=== PATIENT | male | born 1945 | race Caucasian/White ===

== ENCOUNTER 2018-03-19 01:47 | Emergency (ER) | payer MEDICARE, BC ==
[~2018-03-19] VITALS: Ht 190.5 cm; Wt 104.5 kg
[~2018-03-19 01:47] MED LIST: ACTOS 15MG TAB15 MG PO; COUMADIN 3MG3 MG/TAB PO; COUMADIN 5MG5 MG/TAB PO; LIPITOR 40MG TA40 MG PO; LIPITOR20 MG PO; LOFIBRA160 MG PO; LOTREL 10 MG-201 CAP PO; LOTREL 5 MG-401 CAP PO; MOBIC15 MG PO; TYLENOL 325MG325 MG PO; ZETIA10 MG PO
[2018-03-19] MEDS ORDERED: OMNICEF 300MG300 MG PO (01:56)
[2018-03-19] MEDS ORDERED: PYRIDIUM 100MG100 MG PO (01:56)
[2018-03-19] MEDS ORDERED: DOXYCYCLINE 10100 MG PO (01:56)
[2018-03-19 02:18] LABS: HEMATOCRIT 37.5 % (42.0-52.0); HEMOGLOBIN 12.9 g/dl (13.5-18.0); MEAN CELL VOLUME 89 fl (80.0-100.0); MEAN CORPUSCULAR HEMOGLOBIN 31 pg (27.0-31.0); MEAN CORPUSCULAR HGB CONC 34 g/dl (33.0-37.0); MEAN PLATELET VOLUME 10.2 fl (7.4-10.4); PLATELET COUNT 263 K/mm3 (130-400); RED BLOOD COUNT 4.23 M/mm3 (4.20-5.60); REDCELL DISTRIBUTION WIDTH-CV 15.6 % (11.5-14.5)
[2018-03-19 02:21] LABS: COLLECTION METHOD CLEAN CATCH
[2018-03-19 02:24] LABS: INR 2.7 (0.8-3.0); PROTHROMBIN TIME 31.2 SECONDS (9.7-12.8)
[2018-03-19 02:26] LABS: ALBUMIN 3.2 gm/dL (3.5-5.0); BILIRUBIN,TOTAL 1.6 mg/dL (0.0-1.0); CALCIUM 8.8 mg/dL (8.4-10.2); CREATININE, serum 1.19 mg/dL (0.66-1.25); POTASSIUM 3.4 mmol/L (3.4-5.0); TOTAL PROTEIN 6.6 gm/dL (6.4-8.2)
[2018-03-19 02:27] LABS: MUCOUS Present /lpf; PH 5 (5-8); SQUAMOUS EPITHELIAL 0-2 /hpf; URINE APPEARANCE Clear; URINE BACTERIA Rare /hpf; URINE BILIRUBIN Negative (NEGATIVE); URINE BLOOD 1+ (NEGATIVE); URINE COLOR Amber; URINE GLUCOSE Negative (NEGATIVE); URINE KETONE Negative (NEGATIVE); URINE LEUKOCYTE ESTERASE 1+ (NEGATIVE); URINE NITRATE Negative (NEGATIVE); URINE PROTEIN(semi-quant) 1+ (NEGATIVE)
[2018-03-19] MEDS ORDERED: LIPITOR 80MG80 MG PO (02:30)
[2018-03-19] MEDS ORDERED: PRINIVIL40 MG PO (02:31)
[2018-03-19] MEDS ORDERED: COREG 6.256.25 MG/TA PO (02:34)
[2018-03-19] MEDS ORDERED: FLOMAX 0.40.4 MG/CAP PO (02:34)
[2018-03-19 02:44] LABS: TROPONIN-I 0.085 ng/mL (0.000-0.034)
[2018-03-19 02:55] LABS: BAND 32 % (0-10); EOSINOPHIL 2 % (0-4); LYMPHOCYTE 8 % (20.0-51.0); NEUTROPHILS 56 % (42.0-75.2); PLATELET ESTIMATE NORMAL (NORMAL)
[2018-03-19 04:43] VITALS: TEMP 98.9
[2018-03-19 10:02] VITALS: BP 106/70; PULSE 76
[2018-03-21] MEDS ORDERED: ASPIRIN E.C. 8181 MG PO (13:51)
[2018-03-21] MEDS ORDERED: MULTI VITAMINS1 TAB PO (13:53)
[2018-03-21] MEDS ORDERED: K-DUR 10 MEQ T10 MEQ PO (13:54)
== END 2018-03-19 10:33 | disposition short-term general hospital (02) ==
LOC: COL.ER 01:47
PROVIDERS: Emergency Medicine
DX: A41.9 Sepsis, unspecified organism (principal); N39.0 Urinary tract infection, site not specified; R79.89 Other specified abnormal findings of blood chemistry; Z79.01 Long term (current) use of anticoagulants
CPT/HCPCS: J0696; J2405; J2543; J7030; J7050

== ENCOUNTER 2018-06-17 07:31 | Day surgery (SDC) | payer MEDICARE, BC ==
[2018-06-17] VITALS (441 sets, daily range): BP systolic 141–176; BP diastolic 81–131; PULSE 50–83; TEMP 97.9–98.3; O2SAT 84–100
[~2018-06-17] VITALS: Ht 190.7 cm; Wt 102.5 kg
[~2018-06-17 07:31] MED LIST changes: +ASPIRIN E.C. 8181 MG PO; +COREG 6.256.25 MG/TA PO; +DOXYCYCLINE 10100 MG PO; +FLOMAX 0.40.4 MG/CAP PO; +K-DUR 10 MEQ T10 MEQ PO; +LIPITOR 80MG80 MG PO; +MULTI VITAMINS1 TAB PO; +OMNICEF 300MG300 MG PO; +PRINIVIL40 MG PO; +PYRIDIUM 100MG100 MG PO
[2018-06-17 08:01] LABS: HEMATOCRIT 42.8 % (42.0-52.0); HEMOGLOBIN 13.7 g/dl (13.5-18.0); MEAN CELL VOLUME 93 fl (80.0-100.0); MEAN CORPUSCULAR HEMOGLOBIN 30 pg (27.0-31.0); MEAN CORPUSCULAR HGB CONC 32 g/dl (33.0-37.0); MEAN PLATELET VOLUME 10.7 fl (7.4-10.4); PLATELET COUNT 293 K/mm3 (130-400); REDCELL DISTRIBUTION WIDTH-CV 15.7 % (11.5-14.5)
[2018-06-17 08:06] LABS: INR 1.6 (0.8-3.0); PROTHROMBIN TIME 17.7 SECONDS (9.7-12.8)
[2018-06-17 08:13] LABS: CALCIUM 8.8 mg/dL (8.4-10.2); CREATININE, serum 0.96 mg/dL (0.66-1.25); POTASSIUM 3.7 mmol/L (3.4-5.0)
[2018-06-17] MEDS ORDERED: PROSCAR 5MG5 MG PO (09:39)
[2018-06-17] MEDS ORDERED: PRINIVIL2.5 MG PO (09:40)
[2018-06-17] MEDS ORDERED: MIRALAX PA17 GM/Dose PO (09:42)
[2018-06-18] VITALS: BP 142/88; PULSE 60; TEMP 98
[2018-06-18 03:29] VITALS: BP 139/92; BP 139/93; PULSE 51; PULSE 56; TEMP 98.1
[2018-06-18 03:40] LABS: BASO # 0.1 (0.0-0.2); BASO % 0.9 % (0.0-2.0); EOS # 0.2 (0.0-0.7); EOS % 3.6 % (0-4.0); GRAN % 68.2 % (42.2-75.2); HEMATOCRIT 39.2 % (42.0-52.0); HEMOGLOBIN 12.9 g/dl (13.5-18.0); LYMPH % 16.7 % (20.0-51.0); MEAN CELL VOLUME 91 fl (80.0-100.0); MEAN CORPUSCULAR HEMOGLOBIN 30 pg (27.0-31.0); MEAN CORPUSCULAR HGB CONC 33 g/dl (33.0-37.0); MEAN PLATELET VOLUME 10.7 fl (7.4-10.4); MONO # 0.6 (0.1-0.6); MONO % 10.4 % (1.7-9.3); PLATELET COUNT 288 K/mm3 (130-400); REDCELL DISTRIBUTION WIDTH-CV 15.2 % (11.5-14.5)
[2018-06-18 03:45] LABS: INR 1.5 (0.8-3.0); PROTHROMBIN TIME 16.7 SECONDS (9.7-12.8)
[2018-06-18 03:50] LABS: CREATININE, serum 0.86 mg/dL (0.66-1.25); POTASSIUM 3.3 mmol/L (3.4-5.0)
[2018-06-18 08:18] VITALS: BP 148/107; PULSE 59; TEMP 98.7
[2018-06-18] MEDS ORDERED: BRILINTA90 MG PO (09:11)
== END 2018-06-18 09:45 | disposition home or self-care (01) ==
LOC: COL.CAR 07:31 → ICU 11:15 → COL.CAR 06-18 09:45
PROVIDERS: Internal Medicine Cardiovascular Disease; Nurse Practitioner
DX: I25.10 Atherosclerotic heart disease of native coronary artery without angina pectoris (principal); R94.39 Abnormal result of other cardiovascular function study; I48.2 Chronic atrial fibrillation; E78.5 Hyperlipidemia, unspecified; I12.9 Hypertensive chronic kidney disease with stage 1 through stage 4 chronic kidney disease, or unspecified chronic kidney disease; E11.22 Type 2 diabetes mellitus with diabetic chronic kidney disease; N18.3 Chronic kidney disease, stage 3 (moderate); E11.65 Type 2 diabetes mellitus with hyperglycemia; N40.1 Benign prostatic hyperplasia with lower urinary tract symptoms; R35.1 Nocturia; M19.90 Unspecified osteoarthritis, unspecified site; Z88.2 Allergy status to sulfonamides; F17.290 Nicotine dependence, other tobacco product, uncomplicated; I34.9 Nonrheumatic mitral valve disorder, unspecified; Z95.5 Presence of coronary angioplasty implant and graft; Z79.82 Long term (current) use of aspirin; Z79.01 Long term (current) use of anticoagulants; Z83.3 Family history of diabetes mellitus; Z82.49 Family history of ischemic heart disease and other diseases of the circulatory system
CPT/HCPCS: OP; C1760; C1769; C1887; C1894; J0583; J1644; J2250; J3010; Q9967

== ENCOUNTER 2020-10-15 12:33 | Observation (INO) | payer MEDICARE, BC ==
[~2020-10-15] VITALS: Ht 190.5 cm; Wt 96.7 kg
[~2020-10-15 12:33] MED LIST changes: +BRILINTA90 MG PO; +MIRALAX PA17 GM/Dose PO; +PRINIVIL2.5 MG PO; +PROSCAR 5MG5 MG PO
[2020-10-15] MEDS ORDERED: COUMADIN 2MG2 MG/TAB PO (12:56)
[2020-10-15 13:15] LABS: BASO % 0.4 % (0.0-2.0); GRAN # 2.1 (1.4-6.5); GRAN % 72.2 % (42.2-75.2); HEMATOCRIT 43.1 % (42.0-52.0); HEMOGLOBIN 14.5 g/dl (13.5-18.0); LYMPH # 0.5 (1.2-3.4); LYMPH % 18.9 % (20.0-51.0); MEAN CELL VOLUME 90 fl (80.0-100.0); MEAN CORPUSCULAR HEMOGLOBIN 30 pg (27.0-31.0); MEAN CORPUSCULAR HGB CONC 34 g/dl (33.0-37.0); MEAN PLATELET VOLUME 10.2 fl (7.4-10.4); MONO # 0.2 (0.1-0.6); MONO % 8.1 % (1.7-9.3); PLATELET COUNT 158 K/mm3 (130-400); RED BLOOD COUNT 4.77 M/mm3 (4.20-5.60); REDCELL DISTRIBUTION WIDTH-CV 14.6 % (11.5-14.5)
[2020-10-15 13:24] LABS: ALBUMIN 3.4 gm/dL (3.5-5.0); BILIRUBIN,TOTAL 1.1 mg/dL (0.0-1.0); CREATININE, serum 0.83 (0.66-1.25); POTASSIUM 3.7 mmol/L (3.4-5.0); TOTAL PROTEIN 6.5 gm/dL (6.4-8.2)
[2020-10-15 15:25] LABS: CALCIUM 7.6 mg/dL (8.4-10.2); CREATININE, serum 0.76 (0.66-1.25); POTASSIUM 3.4 mmol/L (3.4-5.0)
[2020-10-15 18:20] LABS: INR 1.9 (0.8-3.0); PROTHROMBIN TIME 21.9 SECONDS (9.7-12.8)
[2020-10-15 18:32] LABS: MAGNESIUM 1.9 mg/dL (1.6-2.3)
--- NOTE | 2020-10-15 19:30 | NUR ---
Pt arrived to medical unit room 305 around 1900. Oriented to room. Admission assessment completed. Lungs CTA, heart RRR, A&Ox4. Gait steady. Denies pain. NS started at 75 ml/hr per orders. Denies other concerns at this time. Call light in reach.
[2020-10-15 19:44] VITALS: BP 147/91; PULSE 59; TEMP 99.2
[2020-10-15] MEDS ORDERED: FLOMAX 0.40.4 MG/CAP PO (20:13)
[2020-10-15 20:40] LABS: TROPONIN-I 0.039 ng/mL (0.000-0.035)
[2020-10-15 20:55] LABS: TSH w REFLEX 2.5 uIU/mL (0.465-4.680)
[2020-10-15 23:11] VITALS: BP 129/68; PULSE 73; TEMP 99.5
[2020-10-16 00:01] LABS: COLLECTION METHOD CLEAN CATCH
[2020-10-16 00:08] LABS: MUCOUS Present /lpf; PH 6 (5-8); SQUAMOUS EPITHELIAL 0-2 /hpf; URINE APPEARANCE Clear; URINE BACTERIA None Seen /hpf; URINE BILIRUBIN Negative (NEGATIVE); URINE BLOOD Negative (NEGATIVE); URINE COLOR Yellow; URINE GLUCOSE Negative (NEGATIVE); URINE KETONE Negative (NEGATIVE); URINE LEUKOCYTE ESTERASE Negative (NEGATIVE); URINE NITRATE Negative (NEGATIVE); URINE PROTEIN(semi-quant) Negative (NEGATIVE); URINE RBC 0-2 /hpf; URINE UROBILINOGEN Negative (NEGATIVE)
[2020-10-16 00:14] LABS: TRICYCLIC ANTIDEPRESS URINE NEGATIVE
--- NOTE | 2020-10-16 01:15 | NUR ---
Potassium administered per protocol. Pt took 40 mEq but refused final dose.
[2020-10-16 02:18] VITALS: BP 134/68; PULSE 67; TEMP 98.5
[2020-10-16 04:26] VITALS: BP 134/54; PULSE 75; TEMP 100.1
--- NOTE | 2020-10-16 05:54 | NUR ---
Rested in bed most of night w/o complaint. IV fluids infusing. T-max of 100.1. Mild headache, declined tylenol and reports headache resolved on its own.
[2020-10-16 06:14] VITALS: BP 110/68; PULSE 56; TEMP 98.4
[2020-10-16 06:56] LABS: BASO % 0.4 % (0.0-2.0); EOS % 0.4 % (0-4.0); GRAN # 1.6 (1.4-6.5); GRAN % 60.3 % (42.2-75.2); HEMATOCRIT 41.1 % (42.0-52.0); HEMOGLOBIN 13.7 g/dl (13.5-18.0); LYMPH # 0.7 (1.2-3.4); LYMPH % 26.5 % (20.0-51.0); MEAN CELL VOLUME 91 fl (80.0-100.0); MEAN CORPUSCULAR HEMOGLOBIN 30 pg (27.0-31.0); MEAN CORPUSCULAR HGB CONC 33 g/dl (33.0-37.0); MEAN PLATELET VOLUME 10.6 fl (7.4-10.4); MONO # 0.3 (0.1-0.6); MONO % 11.2 % (1.7-9.3); PLATELET COUNT 161 K/mm3 (130-400); RED BLOOD COUNT 4.54 M/mm3 (4.20-5.60); REDCELL DISTRIBUTION WIDTH-CV 14.7 % (11.5-14.5)
[2020-10-16 08:06] VITALS: BP 122/62; PULSE 78; TEMP 98.3
--- NOTE | 2020-10-16 08:30 | NUR ---
Pt assessment complete pt sitting up in bed upon entry, he is A/O x4. Reports he did not get good sleep as he was woke up "every 30 min". Body aches come and go. Denies any SOB, currently on RA. No diarrhea at this time. IVF infusing without complications. Call light within reach.
[2020-10-16 09:55] VITALS: BP 98/56; PULSE 80; TEMP 98.3
[2020-10-16 12:02] VITALS: BP 99/55; PULSE 64; TEMP 98.6
[2020-10-16] MEDS ORDERED: COREG 3.123.125 MG/T PO (14:42)
[2020-10-16] MEDS ORDERED: RT Albuterol HFA MDI IH (14:42)
[2020-10-16] MEDS ORDERED: TYLENOL 325MG325 MG PO (14:43)
--- NOTE | 2020-10-16 14:53 | NUR ---
Plans to return home in [place], Patient reports that he recently placed with [facility]. Patient reports that test positive and then he. Patient reports that he was in the middle of planning whether he would go to the [facility] also, stay in home or move in with adult children. Patient reports not having it figured out. Patient reports PCP Dr. Patton and the use of Matt Sebastian. POA is [facility] at or . Dtr to transport.Patient denies having any need for DME or HHS. Will continue to follow for care support.
--- NOTE | 2020-10-16 15:24 | NUR ---
Discharge paperwork and instructions reviewed with patient. All questions answered at this time. IV to RFA dc'd catheter tip intact. Pt awaiting ride at this time.
--- NOTE | 2020-10-16 15:45 | NUR ---
Pt wheeled out of facility at this time.
== END 2020-10-16 15:45 | disposition home or self-care (01) ==
LOC: COL.ER 12:33 → MEDICAL 17:36
PROVIDERS: Emergency Medicine; Nurse Practitioner Family; ADMIT Internal Medicine
DX: R55 Syncope and collapse (principal); I10 Essential (primary) hypertension; I25.10 Atherosclerotic heart disease of native coronary artery without angina pectoris; I48.91 Unspecified atrial fibrillation; U07.1 COVID-19; F17.290 Nicotine dependence, other tobacco product, uncomplicated; Z87.440 Personal history of urinary (tract) infections; Z88.0 Allergy status to penicillin; Z96.651 Presence of right artificial knee joint; E87.6 Hypokalemia; E87.1 Hypo-osmolality and hyponatremia; E78.5 Hyperlipidemia, unspecified; I95.9 Hypotension, unspecified
CPT/HCPCS: G0378; J7030; J7040

== ENCOUNTER 2020-10-22 12:10 | Inpatient (IN) | payer MEDICARE, BC ==
[~2020-10-22] VITALS: Ht 190.5 cm; Wt 98.4 kg
[~2020-10-22 12:10] MED LIST changes: +COREG 3.123.125 MG/T PO; +COUMADIN 2MG2 MG/TAB PO; +RT Albuterol HFA MDI IH
[2020-10-22 13:24] LABS: BASO % 0.2 % (0.0-2.0); EOS % 0.5 % (0-4.0); GRAN % 82.7 % (42.2-75.2); HEMATOCRIT 38.4 % (42.0-52.0); HEMOGLOBIN 13.2 g/dl (13.5-18.0); LYMPH # 0.6 (1.2-3.4); LYMPH % 6.9 % (20.0-51.0); MEAN CELL VOLUME 89 fl (80.0-100.0); MEAN CORPUSCULAR HEMOGLOBIN 31 pg (27.0-31.0); MEAN CORPUSCULAR HGB CONC 34 g/dl (33.0-37.0); MONO # 0.8 (0.1-0.6); PLATELET COUNT 376 K/mm3 (130-400); RED BLOOD COUNT 4.32 M/mm3 (4.20-5.60); REDCELL DISTRIBUTION WIDTH-CV 14.6 % (11.5-14.5)
[2020-10-22 13:32] LABS: ALBUMIN 2.9 gm/dL (3.5-5.0); BILIRUBIN,TOTAL 2.2 mg/dL (0.0-1.0); CALCIUM 7.9 mg/dL (8.4-10.2); CREATININE, serum 0.72 (0.66-1.25); POTASSIUM 3.2 mmol/L (3.4-5.0); TOTAL PROTEIN 6.1 gm/dL (6.4-8.2)
[2020-10-22 13:42] LABS: INR 6.8 (0.8-3.0)
[2020-10-22 13:46] LABS: TROPONIN-I 0.019 ng/mL (0.000-0.035)
[2020-10-22 14:04] LABS: ARTERIAL BLD GAS O2 SATURATION 94.6 % (92-100); ARTERIAL BLOOD GAS BASE EXCESS 0.2 (-2-2); ARTERIAL BLOOD GAS HCO3 22.1 meq/L (22-26); ARTERIAL BLOOD GAS PCO2 28.4 mmHg (35-45); ARTERIAL BLOOD GAS PO2 73.1 mmHg (80-100); ARTERIAL BLOOD GAS pH 7.51 (7.35-7.45)
[2020-10-22 15:33] LABS: COLLECTION METHOD CLEAN CATCH
[2020-10-22 15:34] VITALS: BP 138/82; PULSE 71; TEMP 98.3
[2020-10-22 15:41] LABS: PH 6 (5-8); SQUAMOUS EPITHELIAL None Seen /hpf; URINE APPEARANCE Clear; URINE BACTERIA None Seen /hpf; URINE BILIRUBIN Negative (NEGATIVE); URINE BLOOD Negative (NEGATIVE); URINE COLOR Yellow; URINE GLUCOSE Negative (NEGATIVE); URINE KETONE Negative (NEGATIVE); URINE LEUKOCYTE ESTERASE Negative (NEGATIVE); URINE NITRATE Negative (NEGATIVE); URINE PROTEIN(semi-quant) Negative (NEGATIVE); URINE RBC 0-2 /hpf
[2020-10-22 20:12] VITALS: BP 119/74; PULSE 66; TEMP 97.9
[2020-10-22 23:54] VITALS: BP 144/95; PULSE 82; TEMP 97
[2020-10-23 04:34] VITALS: BP 151/93; PULSE 58; TEMP 97.4
[2020-10-23 07:08] LABS: BASO % 0.1 % (0.0-2.0); GRAN # 7.2 (1.4-6.5); GRAN % 87.8 % (42.2-75.2); HEMOGLOBIN 14.3 g/dl (13.5-18.0); LYMPH # 0.5 (1.2-3.4); LYMPH % 6.5 % (20.0-51.0); MEAN CELL VOLUME 91 fl (80.0-100.0); MEAN CORPUSCULAR HEMOGLOBIN 30 pg (27.0-31.0); MEAN CORPUSCULAR HGB CONC 33 g/dl (33.0-37.0); MEAN PLATELET VOLUME 10.4 fl (7.4-10.4); MONO # 0.4 (0.1-0.6); PLATELET COUNT 416 K/mm3 (130-400); RED BLOOD COUNT 4.75 M/mm3 (4.20-5.60); REDCELL DISTRIBUTION WIDTH-CV 14.6 % (11.5-14.5)
[2020-10-23 07:15] LABS: BILIRUBIN,TOTAL 1.2 mg/dL (0.0-1.0); CALCIUM 8.7 mg/dL (8.4-10.2); CREATININE, serum 0.67 (0.66-1.25); POTASSIUM 3.9 mmol/L (3.4-5.0); TOTAL PROTEIN 6.5 gm/dL (6.4-8.2)
[2020-10-23 07:18] LABS: INR 7.7 (0.8-3.0)
[2020-10-23 08:43] VITALS: BP 171/115; PULSE 69; TEMP 97.7
[2020-10-23 11:31] VITALS: BP 165/90; PULSE 67; TEMP 98
[2020-10-23 16:30] VITALS: BP 150/99; PULSE 62; TEMP 97.8
[2020-10-23 20:15] VITALS: BP 147/87; PULSE 70; TEMP 97.7
[2020-10-23 23:49] VITALS: BP 143/94; PULSE 66; TEMP 97.7
[2020-10-24 03:44] VITALS: BP 139/96; PULSE 58; TEMP 97.3
[2020-10-24 06:36] LABS: BASO % 0.2 % (0.0-2.0); GRAN # 11.9 (1.4-6.5); GRAN % 89.6 % (42.2-75.2); HEMATOCRIT 39.6 % (42.0-52.0); HEMOGLOBIN 13.1 g/dl (13.5-18.0); LYMPH # 0.7 (1.2-3.4); LYMPH % 5.2 % (20.0-51.0); MEAN CELL VOLUME 91 fl (80.0-100.0); MEAN CORPUSCULAR HEMOGLOBIN 30 pg (27.0-31.0); MEAN CORPUSCULAR HGB CONC 33 g/dl (33.0-37.0); MEAN PLATELET VOLUME 10.2 fl (7.4-10.4); MONO # 0.6 (0.1-0.6); MONO % 4.2 % (1.7-9.3); PLATELET COUNT 426 K/mm3 (130-400); RED BLOOD COUNT 4.37 M/mm3 (4.20-5.60); REDCELL DISTRIBUTION WIDTH-CV 14.6 % (11.5-14.5)
[2020-10-24 06:48] LABS: ALBUMIN 2.8 gm/dL (3.5-5.0); BILIRUBIN,TOTAL 0.9 mg/dL (0.0-1.0); CALCIUM 8.1 mg/dL (8.4-10.2); CREATININE, serum 0.57 (0.66-1.25); POTASSIUM 3.9 mmol/L (3.4-5.0)
[2020-10-24 06:59] LABS: INR 5.4 (0.8-3.0); PROTHROMBIN TIME 61.5 SECONDS (9.7-12.8)
[2020-10-24 09:40] VITALS: BP 158/90; PULSE 64; TEMP 98.8
[2020-10-24 12:53] VITALS: BP 155/84; PULSE 69; TEMP 97.4
[2020-10-24 16:51] VITALS: BP 178/99; PULSE 59; TEMP 98.7
[2020-10-24 19:10] VITALS: BP 153/85; PULSE 70; TEMP 97.7
[2020-10-25 00:49] VITALS: BP 159/96; PULSE 95; TEMP 98
[2020-10-25 04:52] VITALS: BP 171/98; PULSE 42; TEMP 97.7
[2020-10-25 06:32] LABS: BASO % 0.2 % (0.0-2.0); GRAN # 9.9 (1.4-6.5); GRAN % 86.5 % (42.2-75.2); HEMATOCRIT 40.1 % (42.0-52.0); HEMOGLOBIN 13.5 g/dl (13.5-18.0); LYMPH # 0.7 (1.2-3.4); LYMPH % 5.9 % (20.0-51.0); MEAN CELL VOLUME 89 fl (80.0-100.0); MEAN CORPUSCULAR HEMOGLOBIN 30 pg (27.0-31.0); MEAN CORPUSCULAR HGB CONC 34 g/dl (33.0-37.0); MEAN PLATELET VOLUME 9.9 fl (7.4-10.4); MONO # 0.7 (0.1-0.6); PLATELET COUNT 434 K/mm3 (130-400); RED BLOOD COUNT 4.53 M/mm3 (4.20-5.60); REDCELL DISTRIBUTION WIDTH-CV 14.6 % (11.5-14.5)
[2020-10-25 06:44] LABS: INR 3.8 (0.8-3.0)
[2020-10-25 06:53] LABS: ALBUMIN 2.9 gm/dL (3.5-5.0); BILIRUBIN,TOTAL 1.2 mg/dL (0.0-1.0); CALCIUM 8.3 mg/dL (8.4-10.2); CREATININE, serum 0.73 (0.66-1.25); POTASSIUM 3.8 mmol/L (3.4-5.0); TOTAL PROTEIN 6.2 gm/dL (6.4-8.2)
[2020-10-25 08:24] VITALS: BP 146/78; PULSE 68; TEMP 97.4
[2020-10-25 12:11] VITALS: BP 130/83; PULSE 71; TEMP 97.8
[2020-10-25 16:25] VITALS: BP 151/96; PULSE 65; TEMP 97.7
[2020-10-25 16:49] LABS: HEPATITIS A ANTIBODY-IGM Negative (Negative); HEPATITIS B SURFACE ANTIGEN Negative (Negative); HEPATITIS C VIRUS ANTIBODY Negative (Negative)
[2020-10-25 20:33] VITALS: BP 142/101; PULSE 64; TEMP 98
[2020-10-26 00:58] VITALS: BP 152/104; PULSE 66; TEMP 97.2
[2020-10-26 04:23] VITALS: BP 158/97; PULSE 49; TEMP 97.7
[2020-10-26 08:05] VITALS: BP 158/97; PULSE 55; TEMP 97.4
[2020-10-26 08:25] LABS: BASO % 0.1 % (0.0-2.0); EOS % 0.1 % (0-4.0); GRAN # 8.6 (1.4-6.5); GRAN % 84.4 % (42.2-75.2); HEMATOCRIT 40.6 % (42.0-52.0); HEMOGLOBIN 13.7 g/dl (13.5-18.0); LYMPH # 0.8 (1.2-3.4); LYMPH % 7.5 % (20.0-51.0); MEAN CELL VOLUME 88 fl (80.0-100.0); MEAN CORPUSCULAR HEMOGLOBIN 30 pg (27.0-31.0); MEAN CORPUSCULAR HGB CONC 34 g/dl (33.0-37.0); MEAN PLATELET VOLUME 10.2 fl (7.4-10.4); MONO # 0.7 (0.1-0.6); MONO % 7.2 % (1.7-9.3); PLATELET COUNT 399 K/mm3 (130-400); RED BLOOD COUNT 4.62 M/mm3 (4.20-5.60); REDCELL DISTRIBUTION WIDTH-CV 14.6 % (11.5-14.5)
[2020-10-26 08:31] LABS: INR 2.7 (0.8-3.0); PROTHROMBIN TIME 30.5 SECONDS (9.7-12.8)
[2020-10-26 08:40] LABS: ALBUMIN 2.8 gm/dL (3.5-5.0); BILIRUBIN,TOTAL 1.1 mg/dL (0.0-1.0); CREATININE, serum 0.67 (0.66-1.25); POTASSIUM 3.7 mmol/L (3.4-5.0); TOTAL PROTEIN 6.1 gm/dL (6.4-8.2)
[2020-10-26 11:17] VITALS: BP 108/83; PULSE 55; TEMP 97.9
[2020-10-26] MEDS ORDERED: NORVASC 5MG5 MG/TAB PO (12:09)
[2020-10-26] MEDS ORDERED: DECADRON6 MG PO (12:09)
[2020-10-26] MEDS ORDERED: ROBITUSSIN DM 105 ML PO (12:09)
[2020-10-26] MEDS ORDERED: MUCINEX DM 30 M1 TE1 PO (12:09)
[2020-10-26] MEDS ORDERED: PROTONIX 40MG T40 MG PO (12:10)
[2020-10-26] MEDS ORDERED: OXYGEN NASAL.CANN (12:12)
[2020-10-26 14:48] VITALS: BP 132/75
== END 2020-10-26 16:55 | disposition home or self-care (01) | DRG 177 ==
LOC: COL.ER 12:10 → MEDICAL 13:42 → PEDS 10-23 16:41
PROVIDERS: Family Medicine; Internal Medicine Infectious Disease; Physician Assistant; Student in an Organized Health Care Education/Training Program; ADMIT Hospitalist
PROC: XW033E5 Introduction of Remdesivir Anti-infective into Peripheral Vein, Percutaneous Approach, New Technology Group 5 (ICD-10-PCS; principal; 2020-10-22)
DX: U07.1 COVID-19 (principal); J12.82 Pneumonia due to coronavirus disease 2019; J96.01 Acute respiratory failure with hypoxia; R79.1 Abnormal coagulation profile; E11.9 Type 2 diabetes mellitus without complications; Z66 Do not resuscitate; I48.91 Unspecified atrial fibrillation; I10 Essential (primary) hypertension; I25.10 Atherosclerotic heart disease of native coronary artery without angina pectoris; N40.0 Benign prostatic hyperplasia without lower urinary tract symptoms; E87.6 Hypokalemia; R94.5 Abnormal results of liver function studies; F17.290 Nicotine dependence, other tobacco product, uncomplicated; D72.829 Elevated white blood cell count, unspecified; Z79.01 Long term (current) use of anticoagulants; Z95.5 Presence of coronary angioplasty implant and graft; Z96.651 Presence of right artificial knee joint; Z79.82 Long term (current) use of aspirin; Z88.2 Allergy status to sulfonamides
CPT/HCPCS: 99222-AI; 99232-AI; 99239; J0696; J1100; J1815; J7030; J7050; J7120; J8540

== ENCOUNTER → 2021-05-05 | Outpatient (CLI) | payer MEDICARE, BC ==
[~2021-05-05] MED LIST changes: +DECADRON6 MG PO; +MUCINEX DM 30 M1 TE1 PO; +MULTIPLE VITAMI1 TA5 PO; +NEURONTIN300 MG/CAP PO; +NORVASC 5MG5 MG/TAB PO; +OXYGEN NASAL.CANN; +PROTONIX 40MG T40 MG PO; +ROBITUSSIN DM 105 ML PO
== END ==
LOC: COL.RAD 12:22
DX: Z01.812 Encounter for preprocedural laboratory examination (principal); I77.810 Thoracic aortic ectasia
CPT/HCPCS: Q9967

== ENCOUNTER 2021-05-17 08:20 | Outpatient (CLI) | payer MEDICARE, BC ==
[2021-05-17] VITALS (7 sets, daily range): BP systolic 101–141; BP diastolic 60–99; PULSE 59–73; TEMP 98
[~2021-05-17] VITALS: Ht 190.5 cm; Wt 103.0 kg
[~2021-05-17 08:20] MED LIST changes: -MULTIPLE VITAMI1 TA5 PO; -NEURONTIN300 MG/CAP PO
[2021-05-17] MEDS ORDERED: NORVASC 5MG5 MG/TAB PO (08:35)
[2021-05-17] MEDS ORDERED: LIPITOR 80MG80 MG PO (08:35)
[2021-05-17] MEDS ORDERED: COREG 3.123.125 MG/T PO (08:36)
[2021-05-17] MEDS ORDERED: PROSCAR 5MG5 MG PO (08:39)
[2021-05-17] MEDS ORDERED: LOFIBRA160 MG PO (08:39)
[2021-05-17] MEDS ORDERED: NEURONTIN300 MG/CAP PO (08:40)
[2021-05-17] MEDS ORDERED: MULTIPLE VITAMI1 TA5 PO (08:40)
[2021-05-17] MEDS ORDERED: FLOMAX 0.40.4 MG/CAP PO (08:41)
[2021-05-17] MEDS ORDERED: PROTONIX 40MG T40 MG PO (08:41)
[2021-05-17] MEDS ORDERED: COUMADIN 2MG2 MG/TAB PO (08:42)
[2021-05-17 09:34] LABS: HEMATOCRIT 42.2 % (42.0-52.0); HEMOGLOBIN 14.2 g/dl (13.5-18.0); MEAN CELL VOLUME 91 fl (80.0-100.0); MEAN CORPUSCULAR HEMOGLOBIN 31 pg (27.0-31.0); MEAN CORPUSCULAR HGB CONC 34 g/dl (33.0-37.0); MEAN PLATELET VOLUME 10.6 fl (7.4-10.4); PLATELET COUNT 256 K/mm3 (130-400); RED BLOOD COUNT 4.64 M/mm3 (4.20-5.60); REDCELL DISTRIBUTION WIDTH-CV 14.7 % (11.5-14.5)
[2021-05-17 09:41] LABS: INR 2.6 (0.8-3.0); PROTHROMBIN TIME 29.3 SECONDS (9.7-12.8)
[2021-05-17 09:48] LABS: CALCIUM 8.6 mg/dL (8.4-10.2); CREATININE, serum 0.95 (0.66-1.25)
--- NOTE | 2021-05-17 10:35 | NUR ---
Report from Anitra ANTHONY. VS baseline. Pt very impatient and wants discharge. Discussed the sadation that he had and that he has to recover and it will take between and hour and ninety minutes. Daughter bedside
--- NOTE | 2021-05-17 11:20 | NUR ---
Pt continues to send his daughter out for discharge. Paolo ANTHONY has informed them that the recovery time is not up nor is the discharge instructions in the computer at this time
--- NOTE | 2021-05-17 11:35 | NUR ---
Daughter is at desk asking about the discharge. The orders are not in the computer at this time. Tram ANTHONY is working on them at this time
--- NOTE | 2021-05-17 11:50 | NUR ---
INT discontinued intact and discharge instructions given by Paolo ANTHONY. The pt was not interested in the instructions and biligerent toward the nurse as she reviewed them. Transferred to front door by , but then would not remain in wc while daughter got the car, he jumped up and told Leandra ANTHONY "to hell with this" he walked to the car independently .
== END 2021-05-17 11:50 | disposition home or self-care (01) ==
LOC: COL.RAD 08:20
PROVIDERS: Internal Medicine Cardiovascular Disease
DX: I48.0 Paroxysmal atrial fibrillation (principal); Z79.899 Other long term (current) drug therapy
CPT/HCPCS: J2704

== ENCOUNTER 2024-03-27 08:00 | Outpatient (CLI) | payer MEDICARE ==
[~2024-03-27] VITALS: Ht 190.5 cm; Wt 105.6 kg
[2024-03-27 08:00] VITALS: BP 124/75; PULSE 72; TEMP 99.2
[~2024-03-27 08:00] MED LIST changes: +B-121000 MCG PO; +CIALIS20 MG PO; +COUMADIN 1MG1 MG/TAB PO; +MULTIPLE VITAMI1 CAP PO; +MULTIPLE VITAMI1 TA5 PO; +NEURONTIN300 MG/CAP PO; +NORCO 325 MG-51 TAB PO; +ULTRAM 50MG TAB50 MG PO
[2024-03-27] MEDS ORDERED: ROXICODONE 55 MG/TAB PO (08:01)
[2024-03-27] MEDS ORDERED: CENTRUM SILVER1 TAB PO (08:06)
--- NOTE | 2024-03-27 09:05 | NUR ---
Pt tolerated PICC placement well. Matt wrap to rt upper arm in place covering PICC line. Pt assisted out to daughter's car by wheelchair. [facility]. Pt able to transfer with standby assist. Assisted to lift and bend rt leg into car. Free of acute complaints at discharge.
[2024-03-27] MEDS ORDERED: [UNRECOGNIZED DRUG - OTHER] IV ONE (14:45)
[2024-03-27] MEDS ORDERED: NS IV ONE (14:45)
[2024-03-27] MEDS ORDERED: PHYTONADIONE IV ONE (14:45)
[2024-03-27] MEDS ORDERED: NS Flush 25 ML IV Bag IV SCH (15:00)
--- NOTE | 2024-03-27 15:00 | NUR ---
Per pharmacy, Christi spoke with ordering physician.Vitamin K to be give IV per pharmacist.
[2024-03-27 15:22] VITALS: BP 125/101; PULSE 71; TEMP 98
== END 2024-03-28 07:15 ==
LOC: EUO 08:00
DX: T84.53XA Infection and inflammatory reaction due to internal right knee prosthesis, initial encounter (principal); Z98.890 Other specified postprocedural states
CPT/HCPCS: C1751; J3430